=== PATIENT | male | born 1980 | race Two or more races ===

== ENCOUNTER 2024-11-16 23:44 | Emergency (ER) | payer SELFPAY ==
[~2024-11-16] VITALS: Ht 160 cm; Wt 82.0 kg
[2024-11-16 23:54] VITALS: O2SAT 100
[2024-11-17] MEDS: LIDOCAINE 5% PATCH TOP SCH (00:35)
[2024-11-17] MEDS: KETOROLAC 15MG/ML VIAL IM ONE (00:35)
[2024-11-17] MEDS ORDERED: NAPR-1176 MT (00:55)
[2024-11-17] MEDS ORDERED: LIDO-53 TP (00:55)
[2024-11-17 01:07] VITALS: BP 109/76; PULSE 67; RESP 16; TEMP 36.8; O2SAT 99
== END 2024-11-17 01:25 | disposition home or self-care (01) ==
LOC: ER 23:44
DX: M54.30 Sciatica, unspecified side (principal); Z79.899 Other long term (current) drug therapy
CPT/HCPCS: 99283; 96372; J1885